=== PATIENT | male | born 1995 | race Caucasian/White ===

== ENCOUNTER 2017-10-03 18:39 | Emergency (ER) | payer MEDICAID | END 2017-10-03 20:08 | disposition home or self-care (01) | LOC: E/R 20:08 | DX: S93.401A Sprain of unspecified ligament of right ankle, initial encounter (principal); W18.39XA Other fall on same level, initial encounter; Y92.89 Other specified places as the place of occurrence of the external cause | CPT/HCPCS: 73610; 73610-RT; 73630; 99283-25 ==

== ENCOUNTER 2017-10-27 18:32 | Emergency (ER) | payer MEDICAID | END 2017-10-27 19:12 | disposition home or self-care (01) | LOC: E/R 18:32 | DX: S99.911A Unspecified injury of right ankle, initial encounter (principal); X58.XXXA Exposure to other specified factors, initial encounter; Y92.89 Other specified places as the place of occurrence of the external cause | CPT/HCPCS: 99283; Z7502 ==

== ENCOUNTER 2018-11-29 00:48 | Emergency (ER) | payer SELFPAY, MEDICAID ==
[2018-11-29] MEDS: CYCLOBENZAPRINE 10 MG TAB PO (02:46)
[2018-11-29] MEDS: ASPIRIN 325 MG TAB PO (02:46)
== END 2018-11-29 02:56 | disposition home or self-care (01) ==
LOC: FTE 02:56
DX: M94.0 Chondrocostal junction syndrome [Tietze] (principal)
CPT/HCPCS: 93005; 99283-25